=== PATIENT | male | born 1940 | race Caucasian/White ===

== ENCOUNTER 2019-10-04 02:30 | Inpatient (IN) ==
[2019-10-04] MEDS ORDERED: NS 0.9% 1000 ml BAG 1,000 ML IV ONE (02:34)
[2019-10-04] MEDS ORDERED: Iodixanol (CONTRAST) 320 MG/ML 100 ML SDV IV ONE (02:52)
[2019-10-04 03:09] LABS: Activated Partial Thrombo Time 27.5 seconds (26.0-38.0); INR 1.47 (0.82-1.09)
[2019-10-04 03:17] LABS: Albumin 2.5 g/dL (3.2-5.2); BUN/Creatinine Ratio 17.9 (8-20); EGFR African American 76.9 (>60); EGFR Non-African American 63.6 (>60); Potassium 3.7 mmol/L (3.5-5.0); Total Protein 6.4 g/dL (6.4-8.9)
[2019-10-04 03:18] LABS: Albumin/Globulin Ratio 0.6 (1-3); Globulin 3.9 g/dL (2-4); HDL Cholesterol 47.3 mg/dL; Total Bilirubin 1.1 mg/dL (0.2-1.0)
[2019-10-04 03:44] LABS: Hematocrit 22 % (42-52); Hemoglobin 7.8 g/dL (14.0-18.0); Mean Corpuscular HGB Conc 36 g/dL (31-36); Mean Corpuscular Hemoglobin 34 pg (27-31); Mean Corpuscular Volume 95 fL (80-94); Mean Platelet Volume 11.1 fL (7.4-10.4); Platelet Count 35 10^3/uL (150-450); Red Blood Count 2.31 10^6 /uL (4.18-5.48); Red Cell Distribution Width 16 % (10-15); White Blood Count 7.1 10^3/uL (3.5-10.8)
[2019-10-04 04:10] LABS: ABS Eosinophils 0.1 10^3/ul (0-0.6); ABS Lymphocytes 0.3 10^3/ul (1.0-4.8); ABS Monocytes 0.7 10^3/ul (0-0.8); ABS Neutrophils 5.9 10^3/ul (1.5-7.7); Eosinophil % 2.1 %; Lymphocyte % 3.7 %; Nucleated Red Blood Cells % 0.2
[2019-10-04 04:40] LABS: Urine Appearance Clear; Urine Bilirubin Negative (Negative); Urine Blood 2+ (Negative); Urine Color Yellow; Urine Glucose Negative (Negative); Urine Ketones Negative (Negative); Urine Nitrite Negative (Negative); Urine Protein 1+(30 mg/dL) (Negative); Urine Specific Gravity 1.019 (1.010-1.030); Urine Urobilinogen Negative (Negative)
[2019-10-04 04:51] LABS: Urine Bacteria 1+ (Absent); Urine Red Blood Cell 3+(>10/hpf) (Absent); Urine White Blood Cell 1+(6-10/hpf) (Absent)
[2019-10-04] MEDS: oxyCODONE SR 20 mg TAB PO SCH ×2 (08:06→21:48)
[2019-10-04] MEDS ORDERED: Aspirin EC 81 mg TAB.EC (enteric coated) PO SCH (09:00)
[2019-10-04 13:36] LABS: Mean Platelet Volume 12.2 fL (7.4-10.4); Platelet Count 38 10^3/uL (150-450)
[2019-10-04 13:49] LABS: BUN/Creatinine Ratio 18.8 (8-20); Calcium 7.1 mg/dL (8.6-10.3); EGFR African American 86.7 (>60); EGFR Non-African American 71.6 (>60); Potassium 3.6 mmol/L (3.5-5.0)
[2019-10-05 06:29] LABS: Hematocrit 20 % (42-52); Hemoglobin 7.2 g/dL (14.0-18.0); Mean Corpuscular HGB Conc 36 g/dL (31-36); Mean Corpuscular Hemoglobin 34 pg (27-31); Mean Corpuscular Volume 95 fL (80-94); Platelet Count 57 10^3/uL (150-450); Red Blood Count 2.11 10^6 /uL (4.18-5.48); Red Cell Distribution Width 16 % (10-15); White Blood Count 4.9 10^3/uL (3.5-10.8)
[2019-10-05 06:31] LABS: ABS Eosinophils 0.1 10^3/ul (0-0.6); ABS Lymphocytes 0.4 10^3/ul (1.0-4.8); ABS Monocytes 0.6 10^3/ul (0-0.8); ABS Neutrophils 3.8 10^3/ul (1.5-7.7); Lymphocyte % 7.8 %; Nucleated Red Blood Cells % 0.1
[2019-10-05 06:39] LABS: BUN/Creatinine Ratio 19.8 (8-20); Calcium 6.9 mg/dL (8.6-10.3); EGFR African American 73.9 (>60); EGFR Non-African American 61.1 (>60); Potassium 3.7 mmol/L (3.5-5.0)
[2019-10-05] MEDS: oxyCODONE SR 20 mg TAB PO SCH ×2 (08:38→22:01)
[2019-10-05] MEDS ORDERED: NS 0.9% 500 ml BAG 500 ML IV ONE (11:56)
[2019-10-05] MEDS ORDERED: Cholecalciferol (VIT D3) 1,000 unit TAB PO SCH (16:00)
[2019-10-05] MEDS: Calcium/Vitamin D TAB 250/125 TAB PO SCH (22:00)
[2019-10-05] MEDS: Senna TAB 8.6 mg TAB PO PRN (22:04)
[2019-10-06] MEDS ORDERED: NS 0.9% 500 ml BAG 500 ML IV ONE (01:24)
[2019-10-06 05:44] LABS: Hematocrit 24 % (42-52); Hemoglobin 8.5 g/dL (14.0-18.0); Mean Corpuscular HGB Conc 36 g/dL (31-36); Mean Corpuscular Hemoglobin 34 pg (27-31); Mean Corpuscular Volume 95 fL (80-94); Mean Platelet Volume 9.6 fL (7.4-10.4); Platelet Count 89 10^3/uL (150-450); Red Cell Distribution Width 16 % (10-15); White Blood Count 6.3 10^3/uL (3.5-10.8)
[2019-10-06 05:51] LABS: Anion Gap 4 mmol/L (2-11); BUN/Creatinine Ratio 19.8 (8-20); Blood Urea Nitrogen 22 mg/dL (6-24); CO2 Carbon Dioxide 22 mmol/L (22-32); Calcium 6.8 mg/dL (8.6-10.3); Chloride 102 mmol/L (101-111); EGFR African American 77.7 (>60); EGFR Non-African American 64.2 (>60); Glucose 97 mg/dL (70-100); Potassium 3.6 mmol/L (3.5-5.0); Sodium 128 mmol/L (135-145)
[2019-10-06 06:43] LABS: % Iron Saturation 10 % (15-55); Iron < 20 ug/dL (50-212); Total Iron Binding Capacity 197 mcg/dL (250-450); Transferrin 141 mg/dL (203-362); Unsaturated Iron Binding < 182 ug/dL
[2019-10-06 07:05] LABS: Ferritin 356.4 ng/mL (24-336)
[2019-10-06 07:09] LABS: Folate 11.03 ng/mL (>3.99)
[2019-10-06 07:10] LABS: Vitamin B12 380 pg/mL (180-914)
[2019-10-06] MEDS: Calcium/Vitamin D TAB 250/125 TAB PO SCH ×2 (09:06→21:14)
[2019-10-06] MEDS: oxyCODONE SR 20 mg TAB PO SCH ×2 (09:07→21:13)
[2019-10-06] MEDS: Senna TAB 8.6 mg TAB PO PRN (21:13)
[2019-10-07 06:56] LABS: Hematocrit 25 % (42-52); Hemoglobin 9.1 g/dL (14.0-18.0); Mean Corpuscular HGB Conc 37 g/dL (31-36); Mean Corpuscular Hemoglobin 35 pg (27-31); Mean Corpuscular Volume 95 fL (80-94); Mean Platelet Volume 8.9 fL (7.4-10.4); Platelet Count 140 10^3/uL (150-450); Red Blood Count 2.61 10^6 /uL (4.18-5.48); Red Cell Distribution Width 16 % (10-15); White Blood Count 4.4 10^3/uL (3.5-10.8)
[2019-10-07 07:20] LABS: BUN/Creatinine Ratio 18.4 (8-20); Calcium 7.3 mg/dL (8.6-10.3); EGFR African American 89.7 (>60); EGFR Non-African American 74.2 (>60); Potassium 3.5 mmol/L (3.5-5.0)
[2019-10-07] MEDS: oxyCODONE SR 20 mg TAB PO SCH ×2 (09:04→21:30)
[2019-10-07] MEDS: Calcium/Vitamin D TAB 250/125 TAB PO SCH ×2 (09:04→21:31)
[2019-10-07] MEDS: Senna TAB 8.6 mg TAB PO PRN (21:31)
[2019-10-08] MEDS: oxyCODONE SR 20 mg TAB PO SCH ×2 (08:57→22:47)
[2019-10-08] MEDS: Calcium/Vitamin D TAB 250/125 TAB PO SCH ×2 (08:57→22:47)
[2019-10-08] MEDS: Senna TAB 8.6 mg TAB PO PRN (22:46)
[2019-10-08] MEDS: Heparin 5000 UNITS/ML 1 mL VIAL SUBCUT SCH (22:49)
[2019-10-09] MEDS: Heparin 5000 UNITS/ML 1 mL VIAL SUBCUT SCH ×3 (05:45→22:24)
[2019-10-09 07:21] LABS: Hematocrit 25 % (42-52); Hemoglobin 8.8 g/dL (14.0-18.0); Mean Corpuscular HGB Conc 36 g/dL (31-36); Mean Corpuscular Hemoglobin 34 pg (27-31); Mean Corpuscular Volume 95 fL (80-94); Mean Platelet Volume 7.4 fL (7.4-10.4); Platelet Count 260 10^3/uL (150-450); Red Cell Distribution Width 16 % (10-15); White Blood Count 2.8 10^3/uL (3.5-10.8)
[2019-10-09 07:35] LABS: Calcium 7.3 mg/dL (8.6-10.3); EGFR African American 80.2 (>60); EGFR Non-African American 66.3 (>60); Potassium 3.7 mmol/L (3.5-5.0)
[2019-10-09] MEDS: Calcium/Vitamin D TAB 250/125 TAB PO SCH ×2 (08:37→22:24)
[2019-10-09] MEDS: oxyCODONE SR 20 mg TAB PO SCH ×2 (08:37→22:24)
[2019-10-09] MEDS: Senna TAB 8.6 mg TAB PO PRN (22:23)
[2019-10-10] MEDS: Heparin 5000 UNITS/ML 1 mL VIAL SUBCUT SCH ×3 (05:56→20:24)
[2019-10-10] MEDS: oxyCODONE SR 20 mg TAB PO SCH ×2 (09:02→20:24)
[2019-10-10] MEDS: Calcium/Vitamin D TAB 250/125 TAB PO SCH ×2 (09:03→20:26)
[2019-10-11] MEDS: Heparin 5000 UNITS/ML 1 mL VIAL SUBCUT SCH ×2 (06:02→14:14)
[2019-10-11] MEDS: oxyCODONE SR 20 mg TAB PO SCH (08:40)
[2019-10-11] MEDS: Calcium/Vitamin D TAB 250/125 TAB PO SCH (08:40)
[2019-10-11 13:11] VITALS: BP 96/58
== END 2019-10-11 14:25 | DRG 92 ==
LOC: ED 02:30 → MEDTELE 04:48
PROVIDERS: ADMIT Internal Medicine; ATTEND Student in an Organized Health Care Education/Training Program

== ENCOUNTER 2020-08-15 16:43 | Inpatient (IN) ==
[2020-08-15 23:39] LABS: ABS Lymphocytes 0.1 10^3/ul (1.0-4.8); ABS Monocytes 0.1 10^3/ul (0-0.8); Hematocrit 35 % (42-52); Lymphocyte % 10.9 %; Mean Corpuscular HGB Conc 34 g/dL (31-36); Mean Corpuscular Hemoglobin 33 pg (27-31); Mean Corpuscular Volume 96 fL (80-94); Mean Platelet Volume 10.9 fL (7.4-10.4); Nucleated Red Blood Cells % 0.1; Platelet Count 29 10^3/uL (150-450); Red Blood Count 3.65 10^6 /uL (4.18-5.48); Red Cell Distribution Width 15 % (10-15); White Blood Count 1.2 10^3/uL (3.5-10.8)
[2020-08-15 23:40] LABS: ALT 65 U/L (7-52); AST 75 U/L (13-39); Albumin 3.6 g/dL (3.2-5.2); Albumin/Globulin Ratio 1.7 (1-3); Alkaline Phosphatase 34 U/L (35-149); Anion Gap 7 mmol/L (2-11); Blood Urea Nitrogen 26 mg/dL (6-24); C Reactive Protein 153.01 mg/L (<8.01); CO2 Carbon Dioxide 25 mmol/L (22-32); Calcium 8.3 mg/dL (8.6-10.3); Chloride 98 mmol/L (101-111); EGFR African American 68.9 (>60); EGFR Non-African American 56.9 (>60); Globulin 2.1 g/dL (2-4); Glucose 125 mg/dL (70-100); Potassium 3.4 mmol/L (3.5-5.0); Sodium 130 mmol/L (135-145); Total Protein 5.7 g/dL (6.4-8.9)
[2020-08-15 23:48] LABS: Troponin I 0.04 ng/mL (<0.03)
[2020-08-15] MEDS ORDERED: Cefepime 2 GM in Dextrose 2 GM/50 ML BAG IV ONE (23:49)
[2020-08-15] MEDS ORDERED: NS 0.9% 1000 ml BAG 1,000 ML IV.FLUID IV ONE (23:58)
[2020-08-16 00:35] LABS: Magnesium 1.7 mg/dL (1.9-2.7)
[2020-08-16] MEDS ORDERED: Potassium Chlor 20 meq TAB.ER PO ONE (00:56)
[2020-08-16] MEDS ORDERED: Magnesium Sulfate 2 gm BAG 2 GM/50 ML BAG IVPB ONE (01:21)
[2020-08-16] MEDS ORDERED: Albuterol/Ipratropium NEB.SOL (2.5/0.5 MG) 3 ML NEB.SOLN INH PRN (02:21)
[2020-08-16] MEDS ORDERED: Albuterol HFA INHALER 8 gm MDI INH PRN (02:22)
[2020-08-16 02:46] LABS: Urine Appearance Clear; Urine Bilirubin Negative (Negative); Urine Blood Negative (Negative); Urine Color Yellow; Urine Glucose 1+(50 mg/dL) (Negative); Urine Ketones Negative (Negative); Urine Nitrite Negative (Negative); Urine Protein 1+(30 mg/dL) (Negative); Urine Specific Gravity 1.015 (1.002-1.030); Urine Urobilinogen Negative (Negative)
[2020-08-16 02:57] LABS: Urine Bacteria Absent (Absent); Urine Red Blood Cell Trace(0-2/hpf) (Absent); Urine Squamous Epithelial Cell Present (Absent); Urine White Blood Cell Trace(0-5/hpf) (Absent)
[2020-08-16 02:58] LABS: Troponin I 0.04 ng/mL (<0.03)
[2020-08-16] MEDS ORDERED: Iodixanol (CONTRAST) 320 MG/ML 100 ML SDV IV ONE (03:08)
[2020-08-16 04:37] LABS: Hepatitis B Surface Antigen Nonreactive (Nonreactive)
[2020-08-16 04:42] LABS: Hepatitis A Ab IgM Negative (Negative); Hepatitis B Core IgM Nonreactive (Nonreactive)
[2020-08-16 04:54] LABS: Hepatitis C Antibody Negative (Negative)
[2020-08-16 06:18] LABS: Troponin I 0.05 ng/mL (<0.03)
[2020-08-16] MEDS ORDERED: Lenalidomide 10 mg CAP (NF) PO SCH (09:00)
[2020-08-16 09:14] LABS: ABS Lymphocytes 0.1 10^3/ul (1.0-4.8); ABS Monocytes 0.1 10^3/ul (0-0.8); ABS Neutrophils 0.7 10^3/ul (1.5-7.7); Eosinophil % 0.1 %; Hematocrit 30 % (42-52); Hemoglobin 10.4 g/dL (14.0-18.0); Lymphocyte % 11.4 %; Mean Corpuscular HGB Conc 35 g/dL (31-36); Mean Corpuscular Hemoglobin 33 pg (27-31); Mean Corpuscular Volume 96 fL (80-94); Mean Platelet Volume 9.5 fL (7.4-10.4); Nucleated Red Blood Cells % 0.2; Platelet Count 18 10^3/uL (150-450); Red Blood Count 3.12 10^6 /uL (4.18-5.48); Red Cell Distribution Width 14 % (10-15); White Blood Count 0.9 10^3/uL (3.5-10.8)
[2020-08-16 09:20] LABS: ALT 50 U/L (7-52); AST 62 U/L (13-39); Albumin/Globulin Ratio 1.8 (1-3); Alkaline Phosphatase 28 U/L (35-149); Anion Gap 4 mmol/L (2-11); Blood Urea Nitrogen 22 mg/dL (6-24); C Reactive Protein 128.74 mg/L (<8.01); CO2 Carbon Dioxide 25 mmol/L (22-32); Calcium 7.1 mg/dL (8.6-10.3); Chloride 102 mmol/L (101-111); EGFR Non-African American 66.1 (>60); Globulin 1.7 g/dL (2-4); Glucose 115 mg/dL (70-100); Magnesium 1.9 mg/dL (1.9-2.7); Potassium 3.6 mmol/L (3.5-5.0); Sodium 131 mmol/L (135-145); Total Protein 4.7 g/dL (6.4-8.9)
[2020-08-16 09:24] LABS: Troponin I 0.06 ng/mL (<0.03)
[2020-08-16] MEDS: Cefepime 2 GM in Dextrose 2 GM/50 ML BAG IV SCH ×2 (12:04→21:56)
[2020-08-16] MEDS ORDERED: NS 0.9% 1000 ml BAG 1,000 ML IV ONE ×2 (15:46→17:00)
[2020-08-16 16:45] LABS: Troponin I 0.04 ng/mL (<0.03)
[2020-08-16] MEDS: NS 0.9% 1000 ml BAG 1,000 ML IV SCH (18:35)
[2020-08-17] MEDS: NS 0.9% 1000 ml BAG 1,000 ML IV SCH (04:47)
[2020-08-17 07:11] LABS: Hematocrit 29 % (42-52); Hemoglobin 10.2 g/dL (14.0-18.0); Mean Corpuscular HGB Conc 36 g/dL (31-36); Mean Corpuscular Hemoglobin 34 pg (27-31); Mean Corpuscular Volume 95 fL (80-94); Mean Platelet Volume 9.7 fL (7.4-10.4); Platelet Count 23 10^3/uL (150-450); Red Blood Count 3.04 10^6 /uL (4.18-5.48); Red Cell Distribution Width 15 % (10-15); White Blood Count 1.4 10^3/uL (3.5-10.8)
[2020-08-17 07:12] LABS: ABS Neutrophils 0.6 10^3/ul (1.5-7.7)
[2020-08-17 07:28] LABS: Albumin 2.8 g/dL (3.2-5.2); Albumin/Globulin Ratio 1.9 (1-3); C Reactive Protein 106.4 mg/L (<8.01); Calcium 6.5 mg/dL (8.6-10.3); EGFR African American 101.3 (>60); EGFR Non-African American 83.8 (>60); Globulin 1.5 g/dL (2-4); Potassium 3.8 mmol/L (3.5-5.0); Total Bilirubin 1.1 mg/dL (0.2-1.0); Total Protein 4.3 g/dL (6.4-8.9)
[2020-08-17 08:43] LABS: Basophilic Stippling 2+
[2020-08-17] MEDS: Cefepime 2 GM in Dextrose 2 GM/50 ML BAG IV SCH ×2 (10:32→21:38)
[2020-08-18 05:30] LABS: Hematocrit 29 % (42-52); Hemoglobin 10.4 g/dL (14.0-18.0); Mean Corpuscular HGB Conc 36 g/dL (31-36); Mean Corpuscular Hemoglobin 34 pg (27-31); Mean Corpuscular Volume 93 fL (80-94); Mean Platelet Volume 9.9 fL (7.4-10.4); Platelet Count 34 10^3/uL (150-450); Red Blood Count 3.11 10^6 /uL (4.18-5.48); Red Cell Distribution Width 15 % (10-15); White Blood Count 2.9 10^3/uL (3.5-10.8)
[2020-08-18 06:01] LABS: RBC Morphology Normal (Normal)
[2020-08-18 06:02] LABS: ABS Lymphocytes 1.3 10^3/ul (1.0-4.8); ABS Monocytes 0.4 10^3/ul (0-0.8); ABS Neutrophils 1.1 10^3/ul (1.5-7.7); Eosinophil % 1.5 %; Lymphocyte % 44.1 %; Nucleated Red Blood Cells % 0.1
[2020-08-18 06:39] VITALS: BP 139/73
[2020-08-18] MEDS: Cefepime 2 GM in Dextrose 2 GM/50 ML BAG IV SCH ×2 (09:17→09:55)
[2020-08-20 18:14] LABS: Anaplasma phagocytophilum Positive (Negative); B. miyamotoi PCR, B Negative (Negative); Babesia divergens/MO-1 Negative (Negative); Babesia ducani Negative (Negative); Ehrlichia chaffeensis Negative (Negative); Ehrlichia ewingii/canis Negative (Negative); Ehrlichia muris eauclairensis Negative (Negative)
== END 2020-08-18 10:20 | disposition home or self-care (01) | DRG 871 ==
LOC: ED 16:43 → MED 08-16 00:25
PROVIDERS: ADMIT Student in an Organized Health Care Education/Training Program; ATTEND Student in an Organized Health Care Education/Training Program

== ENCOUNTER 2021-07-24 20:02 | Observation (INO) ==
[2021-07-24 21:05] LABS: High Sens Troponin Baseline 42 pg/mL (<20)
[2021-07-24 21:10] LABS: ABS Lymphocytes 0.8 10^3/ul (1.0-4.8); ABS Monocytes 0.3 10^3/ul (0-0.8); ABS Neutrophils 8.6 10^3/ul (1.5-7.7); Eosinophil % 0.1 %; Hematocrit 43 % (42-52); Hemoglobin 14.5 g/dL (14.0-18.0); Lymphocyte % 8.6 %; Mean Corpuscular HGB Conc 34 g/dL (31-36); Mean Corpuscular Hemoglobin 33 pg (27-31); Mean Corpuscular Volume 97 fL (80-94); Platelet Count 113 10^3/uL (150-450); Red Blood Count 4.46 10^6 /uL (4.18-5.48); Red Cell Distribution Width 15 % (10-15); White Blood Count 9.8 10^3/uL (3.5-10.8)
[2021-07-24 21:33] LABS: ALT 31 U/L (7-52); AST 30 U/L (13-39); Albumin 4.6 g/dL (3.2-5.2); Albumin/Globulin Ratio 2.3 (1-3); Alcohol, S < 13 mg/dL (<13); Alkaline Phosphatase 35 U/L (35-149); Anion Gap 15 mmol/L (2-11); Blood Urea Nitrogen 20 mg/dL (6-24); CO2 Carbon Dioxide 25 mmol/L (22-32); Calcium 9.9 mg/dL (8.6-10.3); Chloride 100 mmol/L (101-111); Glucose 110 mg/dL (70-100); Magnesium 2.4 mg/dL (1.9-2.7); Potassium 4.2 mmol/L (3.5-5.0); Sodium 140 mmol/L (135-145); Total Protein 6.6 g/dL (6.4-8.9); eGFR CKD-EPI 32.2 (>60)
[2021-07-24 21:44] LABS: TSH Ultra Thyroid Stim Horm 3.33 mcIU/mL (0.34-5.60)
[2021-07-24] MEDS ORDERED: Lactated Ringers 1000 ml BAG 1,000 ML IV ONE (22:01)
[2021-07-24 22:11] LABS: High Sensitivity Troponin 1 Hr 43 pg/mL (<20)
[2021-07-25 00:20] LABS: C Reactive Protein 1.38 mg/L (<8.01)
[2021-07-25 00:45] LABS: Vitamin B12 1162 pg/mL (180-914)
[2021-07-25 00:48] LABS: Vitamin D Total 25(OH) 39.2 ng/mL (20-50)
[2021-07-25] MEDS ORDERED: Pantoprazole VIAL 40 MG VIAL IV ONE (00:50)
[2021-07-25 01:08] LABS: Urine Appearance Cloudy; Urine Bacteria 1+ (Absent); Urine Bilirubin Negative (Negative); Urine Blood Negative (Negative); Urine Color Yellow; Urine Glucose Negative (Negative); Urine Ketones 1+ (Negative); Urine Nitrite Negative (Negative); Urine Protein 2+(100 mg/dL) (Negative); Urine Red Blood Cell 2+(6-10/hpf) (Absent); Urine Specific Gravity 1.018 (1.002-1.030); Urine Urobilinogen Negative (Negative); Urine White Blood Cell Trace(0-5/hpf) (Absent)
[2021-07-25 01:18] LABS: Urine Benzodiazepine Screen None Detected (None Detect); Urine Cannabinoids Screen None Detected (None Detect); Urine Opiates Screen None Detected (None Detect)
[2021-07-25] MEDS: NS 0.9% 1000 ml BAG 1,000 ML IV SCH ×2 (01:52→17:36)
[2021-07-25 01:54] LABS: Urine Buprenorphine Screen None Detected (None Detect); Urine Fentanyl Screen None Detected (None Detect); Urine Hydrocodone Screen None Detected (None Detect)
[2021-07-25] MEDS: Enoxaparin 30 MG/0.3 ML SYR SUBCUT SCH (03:12)
[2021-07-25 05:45] LABS: ABS Lymphocytes 0.7 10^3/ul (1.0-4.8); ABS Monocytes 0.2 10^3/ul (0-0.8); ABS Neutrophils 5.9 10^3/ul (1.5-7.7); Eosinophil % 0.1 %; Hematocrit 40 % (42-52); Hemoglobin 13.2 g/dL (14.0-18.0); Lymphocyte % 9.6 %; Mean Corpuscular HGB Conc 34 g/dL (31-36); Mean Corpuscular Hemoglobin 33 pg (27-31); Mean Corpuscular Volume 97 fL (80-94); Mean Platelet Volume 8.9 fL (7.4-10.4); Nucleated Red Blood Cells % 0.1; Platelet Count 102 10^3/uL (150-450); Red Blood Count 4.07 10^6 /uL (4.18-5.48); Red Cell Distribution Width 15 % (10-15); White Blood Count 6.9 10^3/uL (3.5-10.8)
[2021-07-25 06:08] LABS: Calcium 9.2 mg/dL (8.6-10.3); Potassium 4.5 mmol/L (3.5-5.0); Total Bilirubin 1.9 mg/dL (0.2-1.0); eGFR CKD-EPI 43.9 (>60)
[2021-07-25] MEDS: Aspirin EC 81 mg TAB.EC (enteric coated) PO SCH (08:58)
[2021-07-25 09:05] LABS: Direct Bilirubin 0.3 mg/dL (0.03-0.18); Indirect Bilirubin 1.6 mg/dL (0.3-1.0)
[2021-07-26 06:36] LABS: Albumin 3.4 g/dL (3.2-5.2); Albumin/Globulin Ratio 2.1 (1-3); Globulin 1.6 g/dL (2-4); Total Bilirubin 1.5 mg/dL (0.2-1.0); eGFR CKD-EPI 70.6 (>60)
[2021-07-26 06:45] LABS: Hematocrit 34 % (42-52); Hemoglobin 11.6 g/dL (14.0-18.0); Mean Corpuscular HGB Conc 34 g/dL (31-36); Mean Corpuscular Hemoglobin 33 pg (27-31); Mean Corpuscular Volume 97 fL (80-94); Red Blood Count 3.49 10^6 /uL (4.18-5.48); Red Cell Distribution Width 15 % (10-15); White Blood Count 4.3 10^3/uL (3.5-10.8)
[2021-07-26 07:53] VITALS: BP 106/59
[2021-07-26 08:04] LABS: Mean Platelet Volume 8.9 fL (7.4-10.4); Platelet Count 79 10^3/uL (150-450)
[2021-07-26] MEDS: Enoxaparin 30 MG/0.3 ML SYR SUBCUT SCH (08:04)
[2021-07-26] MEDS: Aspirin EC 81 mg TAB.EC (enteric coated) PO SCH (08:05)
[2021-07-26] MEDS ORDERED: Lenalidomide 10 mg CAP (NF) PO SCH (09:00)
[2021-07-27 00:05] LABS: Anaplasma phagocytophilum Negative (Negative); B. miyamotoi PCR, B Negative (Negative); Babesia divergens/MO-1 Negative (Negative); Babesia ducani Negative (Negative); Ehrlichia chaffeensis Negative (Negative); Ehrlichia ewingii/canis Negative (Negative); Ehrlichia muris eauclairensis Negative (Negative)
[2021-07-28 17:34] LABS: Kappa Free Light Chain 2.07 mg/dL; Lambda Free Light Chain, S 1.41 mg/dL
[2021-07-29 10:46] LABS: Albumin 3.5 g/dL (3.4-4.7); Gamma Globulin 0.7 g/dL (0.6-1.6); Total Protein(PEP) 6.2 g/dL (6.3 - 7.9)
== END 2021-07-26 08:45 | disposition home or self-care (01) ==
LOC: ED 20:02 → EDHOLD 20:02 → SUATTDRO 23:32 → MEDTELE 07-25 02:45
PROVIDERS: ADMIT Internal Medicine; ATTEND Internal Medicine

== ENCOUNTER 2023-08-24 21:11 | Inpatient (IN) ==
[2023-08-24 21:58] LABS: INR 1.15 (0.83-1.13)
[2023-08-24 22:06] LABS: Albumin/Globulin Ratio 1.7 (1-3); Calcium 9.7 mg/dL (8.6-10.3); Creatinine, Serum 1.82 mg/dL (0.67-1.17); Globulin 2.3 g/dL (2-4); Total Protein 6.3 g/dL (6.4-8.9); eGFR CKD-EPI 36.9 (>60)
[2023-08-24 22:10] LABS: C Reactive Protein < 1.00 mg/L (<8.01)
[2023-08-24] MEDS: Cefepime 2 GM in Dextrose 2 GM/50 ML BAG IV ONE (22:22)
[2023-08-24 22:26] LABS: Urine Appearance Turbid; Urine Bilirubin Negative (Negative); Urine Blood Negative (Negative); Urine Color Dark-Yellow; Urine Glucose Negative (Negative); Urine Ketones Trace (Negative); Urine Nitrite Negative (Negative); Urine Protein 2+ (>=100 mg/dL) (Negative); Urine Specific Gravity 1.025 (1.002-1.030); Urine Urobilinogen 1+ (Negative)
[2023-08-24 22:35] LABS: Urine Bacteria Absent /HPF (Absent); Urine Red Blood Cell Absent /HPF (0-Trace); Urine Squamous Epithelial Cell Present /HPF (Absent); Urine White Blood Cell 1+(6-10/hpf) /HPF (0-Trace)
[2023-08-24] MEDS ORDERED: Ondansetron 4 mg VIAL 2 MG/ML 2 ml VIAL ONE (22:40)
[2023-08-24] MEDS: Ondansetron 4 mg VIAL 2 MG/ML 2 ml VIAL IV ONE ×2 (22:43→23:17)
[2023-08-24 23:16] LABS: ABS Basophils 0.1 10^3/uL (0.0-0.1); ABS Eosinophils 0.1 10^3/uL (0.0-0.5); ABS Lymphocytes 1.1 10^3/uL (1.0-4.8); ABS Monocytes 0.2 10^3/uL (0.0-1.1); ABS Neutrophils 4.6 10^3/uL (1.5-7.6); Eosinophil % 1.5 %; Hematocrit 37.7 % (38-53); Hemoglobin 12.9 g/dL (13.2-16.3); Mean Corpuscular Hgb Conc 34.4 g/dL (31-36); Mean Corpuscular Volume 98.8 fL (80-97); Mean Platelet Volume 9.5 fL (7.5-11.2); Nucleated Red Blood Cells % 0.1 %/100WBC (0.0-0.8); Platelet Count 117 10^3/uL (150-450); Red Blood Count 3.81 10^6/uL (4.06-5.63); Red Cell Distribution Width 16.6 % (12-17); White Blood Count 6.1 10^3/uL (3.6-10.2)
[2023-08-24] MEDS: Vancomycin 1,250 MG in NS 0.9% 250 ml 250 ML IVPB ONE (23:48)
[2023-08-24] MEDS: Lactated Ringers 1000 ml BAG 1,000 ML IV ONE ×2 (23:48→23:49)
[2023-08-25 00:04] LABS: High Sensitivity Troponin 1 Hr 22 pg/mL (<20)
[2023-08-25] MEDS ORDERED: Lorazepam PYXIS KEY PRN ×6 (00:16→05:02)
[2023-08-25] MEDS ORDERED: LORazepam 2 mg VIAL 1 ml ONE (00:17)
[2023-08-25] MEDS: LORazepam 2 mg VIAL 1 ml IV PUSH ONE ×3 (00:19→01:49)
[2023-08-25] MEDS: Haloperidol 5 mg/ml SDV IV/IM 5 MG/ML AMP IV SLOW PU ONE (00:44)
[2023-08-25 02:35] LABS: Creatine Kinase 114 U/L (10-223)
[2023-08-25] MEDS: LORazepam 2 mg VIAL 1 ml IV PUSH PRN ×2 (03:04→06:12)
[2023-08-25] MEDS: Lactated Ringers 1000 ml BAG 1,000 ML IV SCH ×2 (03:47→10:17)
[2023-08-25] MEDS ORDERED: Acetaminophen IV 1 GM/100ML 1,000 MG/100 ML BAG IV PRN (04:06)
[2023-08-25 04:08] LABS: Creatine Kinase 121 U/L (10-223)
[2023-08-25 04:19] LABS: Hematocrit 34.9 % (38-53)
[2023-08-25] MEDS ORDERED: LORazepam 2 mg VIAL 1 ml IV PUSH PRN (05:02)
[2023-08-25 05:33] LABS: Hematocrit 35.1 % (38-53); Hemoglobin 12.2 g/dL (13.2-16.3)
[2023-08-25] MEDS: Pantoprazole VIAL 40 MG VIAL IV ONE (05:43)
[2023-08-25] MEDS: Pantoprazole 80 mg in NS BAG 80 MG/250 ML BAG IV SCH (05:47)
[2023-08-25 06:09] LABS: Calcium 8.8 mg/dL (8.6-10.3); Creatinine, Serum 1.79 mg/dL (0.67-1.17); Potassium 4.2 mmol/L (3.5-5.0); eGFR CKD-EPI 37.6 (>60)
[2023-08-25 06:34] LABS: Hematocrit 34.8 % (38-53); Hemoglobin 12.2 g/dL (13.2-16.3)
[2023-08-25] MEDS: Morphine 2 MG/ML SYRINGE IV PRN (07:41)
[2023-08-25 07:57] LABS: Calcium 8.9 mg/dL (8.6-10.3); Creatinine, Serum 1.84 mg/dL (0.67-1.17); Magnesium 2.6 mg/dL (1.9-2.7); Phosphorus 3.5 mg/dL (2.5-5.0); Potassium 4.2 mmol/L (3.5-5.0); eGFR CKD-EPI 36.4 (>60)
[2023-08-25] MEDS ORDERED: Zosyn per Pharmacy NOTE FOLLOW UP SCH (09:00)
[2023-08-25 09:16] LABS: TSH Ultra Thyroid Stim Horm 2.55 mcIU/mL (0.34-5.60)
[2023-08-25] MEDS: Cyanocobalamin INJ 1,000 MCG/ML VIAL 1 ML VIAL IM ONE (10:21)
[2023-08-25] MEDS: Piperacillin/Tazobac 3.375 BAG 3.375 GM/100 ML BAG IV ONE (10:26)
[2023-08-25 11:43] LABS: Hematocrit 34.3 % (38-53); Hemoglobin 11.6 g/dL (13.2-16.3); Mean Corpuscular Hemoglobin 33.6 pg (27-33); Mean Corpuscular Hgb Conc 33.9 g/dL (31-36); Mean Corpuscular Volume 98.9 fL (80-97); Mean Platelet Volume 9.4 fL (7.5-11.2); Platelet Count 103 10^3/uL (150-450); Red Blood Count 3.46 10^6/uL (4.06-5.63); Red Cell Distribution Width 16.2 % (12-17); White Blood Count 4.5 10^3/uL (3.6-10.2)
[2023-08-25 13:23] LABS: ABS Lymphocytes 0.2 10^3/uL (1.0-4.8); ABS Monocytes 0.3 10^3/uL (0.0-1.1); ABS Neutrophils 3.9 10^3/uL (1.5-7.6); Lymphocyte % 5.1 %
[2023-08-25 13:26] LABS: Hematocrit 33.4 % (38-53); Hemoglobin 11.3 g/dL (13.2-16.3)
[2023-08-25] MEDS: ZOSYN 3.375 GM Q8H per EXTENDED INFUSION IV SCH (14:07)
[2023-08-25] MEDS: Dexmedetomidine 1,000 MCG in NS 0.9% 250 ml 240 ML IV SCH (17:00)
[2023-08-25 18:13] LABS: Calcium 7.8 mg/dL (8.6-10.3); Creatinine, Serum 1.5 mg/dL (0.67-1.17); Magnesium 2.3 mg/dL (1.9-2.7); Phosphorus 4.2 mg/dL (2.5-5.0); eGFR CKD-EPI 46.5 (>60)
[2023-08-25 19:24] LABS: Hematocrit 31.3 % (38-53); Hemoglobin 10.6 g/dL (13.2-16.3)
[2023-08-25] MEDS: Pantoprazole VIAL 40 MG VIAL IV SCH (20:19)
[2023-08-25] MEDS: NS 0.9% 1000 ml BAG 1,000 ML IV SCH (21:49)
[2023-08-25] MEDS: NS 0.9% 1000 ml BAG 1,000 ML IV ONE (22:29)
[2023-08-25] MEDS ORDERED: LORazepam 2 MG/ML 1 mL Syringe IV PRN (23:57)
[2023-08-26] MEDS ORDERED: LORazepam 2 mg VIAL 1 ml IV PUSH PRN (00:27)
[2023-08-26] MEDS ORDERED: Lorazepam PYXIS KEY PRN (00:28)
[2023-08-26] MEDS ORDERED: Morphine 2 MG/ML SYRINGE IV PRN (01:06)
[2023-08-26] MEDS: Norepinephrine 4 MG/250mL D5W 4,000 MCG/250 ML BAG IV SCH (01:45)
[2023-08-26 05:13] LABS: Hematocrit 33.6 % (38-53); Hemoglobin 11.3 g/dL (13.2-16.3); Mean Corpuscular Hemoglobin 33.4 pg (27-33); Mean Corpuscular Hgb Conc 33.8 g/dL (31-36); Mean Corpuscular Volume 99.1 fL (80-97); Red Blood Count 3.39 10^6/uL (4.06-5.63); Red Cell Distribution Width 16.4 % (12-17); White Blood Count 4.5 10^3/uL (3.6-10.2)
[2023-08-26 05:14] LABS: Albumin 2.9 g/dL (3.2-5.2); Albumin/Globulin Ratio 1.8 (1-3); Calcium 7.7 mg/dL (8.6-10.3); Creatinine, Serum 1.91 mg/dL (0.67-1.17); Globulin 1.6 g/dL (2-4); Magnesium 2.5 mg/dL (1.9-2.7); Phosphorus 4.6 mg/dL (2.5-5.0); Potassium 4.5 mmol/L (3.5-5.0); Total Bilirubin 3.1 mg/dL (0.2-1.0); Total Protein 4.5 g/dL (6.4-8.9); eGFR CKD-EPI 34.8 (>60)
[2023-08-26 05:24] LABS: ABS Lymphocytes 0.2 10^3/uL (1.0-4.8); ABS Monocytes 0.5 10^3/uL (0.0-1.1); ABS Neutrophils 3.7 10^3/uL (1.5-7.6); Eosinophil % 0.5 %; Lymphocyte % 5.4 %; Mean Platelet Volume 9.5 fL (7.5-11.2); Nucleated Red Blood Cells % 0.1 %/100WBC (0.0-0.8); Platelet Count 90 10^3/uL (150-450)
[2023-08-26] MEDS ORDERED: Acetaminophen IV 1 GM/100ML 1,000 MG/100 ML BAG IV PRN (08:22)
[2023-08-26] MEDS: DOXYcycline 100 MG in NS 0.9% 250 ml 250 ML IVPB SCH ×2 (11:59→16:30)
[2023-08-26] MEDS: NS 0.9% 500 ml BAG 500 ML IV ONE (13:56)
[2023-08-26] MEDS ORDERED: Sulfur Hexaflouride MICROSPHR 25 MG VIAL ONE (14:31)
[2023-08-26] MEDS: Sulfur Hexaflouride MICROSPHR 25 MG VIAL IV ONE (14:33)
[2023-08-26] MEDS: ZOSYN 3.375 GM Q8H per EXTENDED INFUSION IV SCH (18:03)
[2023-08-27 06:01] LABS: RBC Parasite Smear No Parasites Seen (No Parasite)
[2023-08-27 06:26] LABS: Calcium 7.4 mg/dL (8.6-10.3); Creatinine, Serum 1.16 mg/dL (0.67-1.17); Phosphorus 2.2 mg/dL (2.5-5.0); Potassium 3.5 mmol/L (3.5-5.0); eGFR CKD-EPI 63.3 (>60)
[2023-08-27 07:15] LABS: Hematocrit 26.2 % (38-53); Mean Corpuscular Hemoglobin 33.7 pg (27-33); Mean Corpuscular Hgb Conc 34.3 g/dL (31-36); Mean Corpuscular Volume 98.2 fL (80-97); Red Blood Count 2.67 10^6/uL (4.06-5.63); Red Cell Distribution Width 16.3 % (12-17); White Blood Count 2.4 10^3/uL (3.6-10.2)
[2023-08-27 08:25] LABS: ABS Eosinophils 0.1 10^3/uL (0.0-0.5); ABS Lymphocytes 0.3 10^3/uL (1.0-4.8); ABS Monocytes 0.2 10^3/uL (0.0-1.1); ABS Neutrophils 1.9 10^3/uL (1.5-7.6); Eosinophil % 2.8 %; Lymphocyte % 11.5 %; Mean Platelet Volume 9.6 fL (7.5-11.2); Platelet Count 62 10^3/uL (150-450)
[2023-08-27 09:18] LABS: Hematocrit 28.8 % (38-53); Hemoglobin 9.8 g/dL (13.2-16.3); Mean Corpuscular Hemoglobin 33.4 pg (27-33); Mean Corpuscular Hgb Conc 33.9 g/dL (31-36); Mean Corpuscular Volume 98.5 fL (80-97); Red Blood Count 2.92 10^6/uL (4.06-5.63); Red Cell Distribution Width 16.8 % (12-17); White Blood Count 2.9 10^3/uL (3.6-10.2)
[2023-08-27 09:19] LABS: Mean Platelet Volume 8.8 fL (7.5-11.2); Platelet Count 63 10^3/uL (150-450)
[2023-08-27] MEDS: Potassium Phosphate IV 10 MMOL in NS 0.9% 250 ml 250 ML IVPB ONE (09:39)
[2023-08-27 09:41] LABS: ABS Eosinophils 0.1 10^3/uL (0.0-0.5); ABS Lymphocytes 0.3 10^3/uL (1.0-4.8); ABS Monocytes 0.2 10^3/uL (0.0-1.1); ABS Neutrophils 2.3 10^3/uL (1.5-7.6); Eosinophil % 2.4 %; Lymphocyte % 10.1 %
[2023-08-27] MEDS: Polyethylene Glycol 3350 17 GM PACKET PO SCH (09:57)
[2023-08-27 18:41] LABS: Total Bilirubin 2.9 mg/dL (0.2-1.0)
[2023-08-27 19:02] LABS: Ferritin 178.8 ng/mL (24-336)
[2023-08-27 19:07] LABS: Folate 12.33 ng/mL (5.90-24.80)
[2023-08-27 21:13] LABS: Immature Retic Fraction 0.77
[2023-08-27 21:39] LABS: RBC Retic Count 2.96 10^6/ul (4.06-5.63)
[2023-08-27 21:40] LABS: Corrected Retic Count 0.6 % (0.5-2.2); Hematocrit for Retic CNT 29.2 % (38-53)
[2023-08-27 23:16] LABS: Anaplasma phagocytophilum Negative (Negative); B. miyamotoi PCR, B Negative (Negative); Babesia divergens/MO-1 Negative (Negative); Babesia ducani Negative (Negative); Ehrlichia chaffeensis Negative (Negative); Ehrlichia ewingii/canis Negative (Negative); Ehrlichia muris eauclairensis Negative (Negative)
[2023-08-28 08:49] LABS: Albumin 2.5 g/dL (3.2-5.2); Albumin/Globulin Ratio 1.5 (1-3); Calcium 7.3 mg/dL (8.6-10.3); Globulin 1.7 g/dL (2-4); Potassium 3.3 mmol/L (3.5-5.0); Total Bilirubin 1.5 mg/dL (0.2-1.0); Total Protein 4.2 g/dL (6.4-8.9); eGFR CKD-EPI 75.6 (>60)
[2023-08-28 08:50] LABS: Magnesium 1.6 mg/dL (1.9-2.7); Phosphorus 2.1 mg/dL (2.5-5.0)
[2023-08-28 08:54] LABS: ABS Lymphocytes 0.2 10^3/uL (1.0-4.8); ABS Monocytes 0.3 10^3/uL (0.0-1.1); ABS Neutrophils 1.8 10^3/uL (1.5-7.6); Eosinophil % 1.3 %; Hematocrit 25.9 % (38-53); Hemoglobin 9.1 g/dL (13.2-16.3); Lymphocyte % 9.6 %; Mean Corpuscular Hemoglobin 34.6 pg (27-33); Mean Corpuscular Hgb Conc 35.3 g/dL (31-36); Mean Corpuscular Volume 98.1 fL (80-97); Mean Platelet Volume 8.7 fL (7.5-11.2); Nucleated Red Blood Cells % 0.1 %/100WBC (0.0-0.8); Platelet Count 63 10^3/uL (150-450); Red Blood Count 2.64 10^6/uL (4.06-5.63); Red Cell Distribution Width 15.9 % (12-17); White Blood Count 2.5 10^3/uL (3.6-10.2)
[2023-08-28 12:06] LABS: Direct Bilirubin 0.3 mg/dL (0.03-0.18); Indirect Bilirubin 1.2 mg/dL (0.3-1.0)
[2023-08-28] MEDS: Magnesium Sulf 4 GM/100 ML IV 4,000 MG/100 ML BAG IVPB ONE (12:53)
[2023-08-28] MEDS: Potassium Chloride LIQUID 20 MEQ/15 ML LIQUID PO ONE (12:53)
[2023-08-28 19:41] LABS: Calprotectin 434 mcg/g
[2023-08-29 06:20] LABS: Hematocrit 26.4 % (38-53); Hemoglobin 9.3 g/dL (13.2-16.3); Mean Corpuscular Hemoglobin 34.5 pg (27-33); Mean Corpuscular Hgb Conc 35.1 g/dL (31-36); Mean Corpuscular Volume 98.3 fL (80-97); Mean Platelet Volume 8.5 fL (7.5-11.2); Platelet Count 75 10^3/uL (150-450); Red Blood Count 2.69 10^6/uL (4.06-5.63); Red Cell Distribution Width 16.2 % (12-17); White Blood Count 2.4 10^3/uL (3.6-10.2)
[2023-08-29 06:23] LABS: Albumin 2.7 g/dL (3.2-5.2); Albumin/Globulin Ratio 1.5 (1-3); Calcium 7.1 mg/dL (8.6-10.3); Creatinine, Serum 0.99 mg/dL (0.67-1.17); Globulin 1.8 g/dL (2-4); Phosphorus 2.6 mg/dL (2.5-5.0); Potassium 3.3 mmol/L (3.5-5.0); Total Bilirubin 1.9 mg/dL (0.2-1.0); Total Protein 4.5 g/dL (6.4-8.9); eGFR CKD-EPI 76.5 (>60)
[2023-08-29 07:52] LABS: ABS Lymphocytes 0.3 10^3/uL (1.0-4.8); ABS Monocytes 0.6 10^3/uL (0.0-1.1); ABS Neutrophils 1.5 10^3/uL (1.5-7.6); Anisocytosis 1+; Burr Cells 1+; Eosinophil % 0.3 %; Lymphocyte % 11.8 %; Macrocytosis 1+; Toxic Granulation 2+
[2023-08-29] MEDS ORDERED: Potassium Chlor 20 meq TAB.ER PO SCH (09:00)
[2023-08-29] MEDS: KCL 20 MEQ/100 ML IVPREMIX 20 MEQ/100 ML BAG IV SCH (10:11)
[2023-08-29] MEDS: Potassium Chloride LIQUID 20 MEQ/15 ML LIQUID PO ONE (12:54)
[2023-08-29 14:37] LABS: Hematocrit 27.1 % (38-53); Hemoglobin 8.9 g/dL (13.2-16.3); Mean Corpuscular Hemoglobin 32.7 pg (27-33); Mean Corpuscular Hgb Conc 32.9 g/dL (31-36); Mean Corpuscular Volume 99.2 fL (80-97); Mean Platelet Volume 8.5 fL (7.5-11.2); Platelet Count 70 10^3/uL (150-450); Red Blood Count 2.73 10^6/uL (4.06-5.63); Red Cell Distribution Width 16.2 % (12-17); White Blood Count 2.5 10^3/uL (3.6-10.2)
[2023-08-29 14:50] LABS: Calcium 6.9 mg/dL (8.6-10.3); Creatinine, Serum 0.93 mg/dL (0.67-1.17); Potassium 3.8 mmol/L (3.5-5.0); eGFR CKD-EPI 82.5 (>60)
[2023-08-29 15:07] LABS: ABS Lymphocytes 0.3 10^3/uL (1.0-4.8); ABS Monocytes 0.5 10^3/uL (0.0-1.1); ABS Neutrophils 1.6 10^3/uL (1.5-7.6); Eosinophil % 1.1 %; Lymphocyte % 11.3 %; Nucleated Red Blood Cells % 0.1 %/100WBC (0.0-0.8)
[2023-08-30 07:55] LABS: ABS Eosinophils 0.1 10^3/uL (0.0-0.5); ABS Lymphocytes 0.4 10^3/uL (1.0-4.8); ABS Monocytes 0.4 10^3/uL (0.0-1.1); ABS Neutrophils 1.3 10^3/uL (1.5-7.6); Hematocrit 25.4 % (38-53); Hemoglobin 8.6 g/dL (13.2-16.3); Lymphocyte % 16.3 %; Mean Corpuscular Hemoglobin 33.1 pg (27-33); Mean Corpuscular Volume 97.4 fL (80-97); Nucleated Red Blood Cells % 0.2 %/100WBC (0.0-0.8); Platelet Count 80 10^3/uL (150-450); Red Blood Count 2.61 10^6/uL (4.06-5.63); Red Cell Distribution Width 15.9 % (12-17); White Blood Count 2.2 10^3/uL (3.6-10.2)
[2023-08-30 08:46] LABS: Albumin 2.4 g/dL (3.2-5.2); Albumin/Globulin Ratio 1.3 (1-3); Calcium 7.1 mg/dL (8.6-10.3); Creatinine, Serum 0.89 mg/dL (0.67-1.17); Globulin 1.8 g/dL (2-4); Magnesium 1.8 mg/dL (1.9-2.7); Potassium 3.4 mmol/L (3.5-5.0); Total Bilirubin 1.2 mg/dL (0.2-1.0); Total Protein 4.2 g/dL (6.4-8.9); eGFR CKD-EPI 86.1 (>60)
[2023-08-30] MEDS: Magnesium Sulfate 2 gm BAG 2 GM/50 ML BAG IVPB ONE (11:36)
[2023-08-30] MEDS: Potassium Chlor 20 meq TAB.ER PO ONE (11:37)
[2023-08-30 14:10] LABS: Kappa Free Light Chain 6.08 mg/dL; Lambda Free Light Chain, S 3.12 mg/dL
[2023-08-30] MEDS: PEG 3000 GI LAVAGE 1 GALLON PO ONE (15:35)
[2023-08-30 16:20] LABS: Hematocrit 25.7 % (38-53); Mean Corpuscular Hemoglobin 33.8 pg (27-33); Mean Corpuscular Hgb Conc 34.9 g/dL (31-36); Mean Corpuscular Volume 96.8 fL (80-97); Platelet Count 86 10^3/uL (150-450); Red Blood Count 2.66 10^6/uL (4.06-5.63); Red Cell Distribution Width 16.2 % (12-17); White Blood Count 2.5 10^3/uL (3.6-10.2)
[2023-08-31 04:58] LABS: Calcium 7.5 mg/dL (8.6-10.3); Creatinine, Serum 0.83 mg/dL (0.67-1.17); Magnesium 1.8 mg/dL (1.9-2.7); Phosphorus 2.8 mg/dL (2.5-5.0); Potassium 3.7 mmol/L (3.5-5.0); eGFR CKD-EPI 87.9 (>60)
[2023-08-31 06:38] LABS: ABS Eosinophils 0.2 10^3/uL (0.0-0.5); ABS Lymphocytes 0.4 10^3/uL (1.0-4.8); ABS Monocytes 0.3 10^3/uL (0.0-1.1); ABS Neutrophils 1.6 10^3/uL (1.5-7.6); Eosinophil % 7.1 %; Hemoglobin 8.6 g/dL (13.2-16.3); Lymphocyte % 15.8 %; Mean Corpuscular Hemoglobin 33.2 pg (27-33); Mean Corpuscular Hgb Conc 34.4 g/dL (31-36); Mean Corpuscular Volume 96.3 fL (80-97); Mean Platelet Volume 8.4 fL (7.5-11.2); Nucleated Red Blood Cells % 0.2 %/100WBC (0.0-0.8); Platelet Count 99 10^3/uL (150-450); Red Cell Distribution Width 16.1 % (12-17); White Blood Count 2.5 10^3/uL (3.6-10.2)
[2023-08-31] MEDS: Magnesium Sulfate 2 gm BAG 2 GM/50 ML BAG IVPB ONE (07:40)
[2023-08-31 14:07] VITALS: BP 128/69
[2023-08-31 14:54] LABS: ABS Eosinophils 0.1 10^3/uL (0.0-0.5); ABS Lymphocytes 0.4 10^3/uL (1.0-4.8); ABS Monocytes 0.3 10^3/uL (0.0-1.1); Eosinophil % 3.3 %; Hemoglobin 9.8 g/dL (13.2-16.3); Lymphocyte % 14.4 %; Mean Corpuscular Hgb Conc 33.8 g/dL (31-36); Mean Corpuscular Volume 97.6 fL (80-97); Mean Platelet Volume 8.5 fL (7.5-11.2); Platelet Count 128 10^3/uL (150-450); Red Blood Count 2.97 10^6/uL (4.06-5.63); Red Cell Distribution Width 16.2 % (12-17); White Blood Count 2.9 10^3/uL (3.6-10.2)
== END 2023-08-31 15:16 | disposition home or self-care (01) | DRG 70 ==
LOC: ED 21:11 → EDHOLD 21:11 → SUATTDRO 08-25 03:46 → ICU 08-25 03:51 → SUATTDRO 08-25 09:54 → SSU 08-27 09:07
PROVIDERS: ADMIT Internal Medicine; ATTEND Hospitalist